=== PATIENT | male | born 1980 | race Caucasian/White ===

== ENCOUNTER 2017-01-31 12:08 | Emergency (ER) | payer OTHER ==
[2017-01-31 12:12] VITALS: BMI 38.0
--- NOTE | 2017-01-31 12:30 | PDOC ---
History of Present Illness - General Chief Complaint: Lightheaded Stated Complaint: Syncope/Near Syncope Time Seen by Provider: 01/31/17 12:14 History Source: Patient Exam Limitations: No Limitations - History of Present Illness Initial Comments: CHIEF COMPLAINT: 36 y/o afebrile male with PMH HTN c/o dizziness and abdominal pain at 11:30 this morning. HISTORY OF PRESENT ILLNESS: The patient states he stepped out of his house on his way to work when he experienced dizziness, that he describes as the room spinning around him, nausea and upper abdominal pain. He states he still has dizziness and now a headache. He does admit he was diagnosed with HTN by Dr. Schuler and finished his first 30 days of medication about 3 days ago. He states he hasn't followed up with Dr. Schuler yet to see if he needs a refill. he denies fever, chills, neck pain, changes in vision/hearing, v/d, CP, SOB, hematuria, dysuria, numbness/tingling in extremities. PCP is Dr. Dorina Schuelr. Vital signs on arrival are within normal limits. REVIEW OF SYSTEMS: GENERAL/CONSTITUTIONAL: No fever/chills. No weakness. No weight change. HEAD, EYES, EARS, NOSE AND THROAT: No change in vision. No ear pain or discharge. No sore throat. CARDIOVASCULAR: No chest pain or shortness of breath. RESPIRATORY: No cough, wheezing, or hemoptysis. GASTROINTESTINAL: +sharp upper abdominal pain and nausea. No vomiting, diarrhea , constipation. GENITOURINARY: No dysuria, frequency, or change in urination. MUSCULOSKELETAL: No joint or muscle swelling or pain. No neck or back pain. SKIN: No rash or easy bruising. NEUROLOGIC: +headache and dizziness. No loss of consciousness or loss of sensation. PHYSICAL EXAM: GENERAL: The patient is awake, alert, and fully oriented, in no acute distress. He is a morbidly obese male, in NAD or obvious discomfort. HEAD: Normal with no signs of trauma. NECK: No meningismus. ENT: Pupils equal, round and reactive to light, extraocular movements intact, sclera anicteric, conjunctiva clear. LUNGS: Clear to auscultation bilaterally. Normal excursion. No respiratory distress or use of accessory muscles. CV: RRR, S1/S2, no MRG. Cap refill < 2 sec. ABDOMEN: Soft, obese, epigastric TTP and +Valenzuela's sign. No rebound, guarding or rigidity. EXTREMITIES: Normal range of motion, no edema. NEUROLOGICAL: Normal speech, normal gait. CN II-XII grossly intact. PSYCH: Normal mood, normal affect. SKIN: Warm, dry, normal turgor, no rashes or lesions noted. Past History - Past Medical History Allergies/Adverse Reactions: Allergies Allergy/AdvReac Type Severity Reaction Status Date / Time No Known Allergies Allergy Verified 01/31/17 13:48 Home Medications: Ambulatory Orders No Home Medications 0 dose .ROUTE UTDICT 12/12/12 Meclizine HCl [Antivert -] 25 mg PO TID #15 tablet 01/31/17 Anemia: No Asthma: No Cancer: No Cardiac Disorders: No CVA: No COPD: No CHF: No Dementia: No Diabetes: No GI Disorders: Yes (REFLUX) Disorders: No HTN: No Hypercholesterolemia: Yes Liver Disease: No Seizures: No Thyroid Disease: Yes - Surgical History Abdominal Surgery: No Appendectomy: No Cardiac Surgery: No Cholecystectomy: No Lung Surgery: No Neurologic Surgery: No Orthopedic Surgery: No - Immunization History Immunization Up to Date: Yes - Psycho/Social/Smoking Cessation Hx Anxiety: No Suicidal Ideation: No Smoking Status: No Smoking History: Never smoked Have you smoked in the past 12 months: No Number of Cigarettes Smoked Daily: 0 Hx Alcohol Use: No Drug/Substance Use Hx: No Substance Use Type: None Hx Substance Use Treatment: No *Physical Exam - Vital Signs Last Vital Signs Temp Pulse Resp BP Pulse Ox 98.6 F 61 18 145/87 98 01/31/17 12:10 01/31/17 12:10 01/31/17 12:10 01/31/17 12:10 01/31/17 12:10 Heart Score/ECG Review - ECG Intrepretation Comment:: Twelve-lead EKG was performed and reviewed by Dr. Grissom. There is normal sinus rhythm with a normal rate. The axis is normal. The intervals are normal. There are no ST or T wave abnormalities. Impression: Normal twelve-lead EKG ED Treatment Course - LABORATORY CBC & Chemistry Diagram: 01/31/17 13:01 01/31/17 13:05 Medical Decision Making - Medical Decision Making A/P: 36 y/o male with dizziness, FRASER, nausea and upper abdominal pain that started at 11:30am. Plan is as follows: 1. Labs 2. EKG 3. gallbladder ultrasound 4. IV fluids 5. IV tylenol 6. IV pepcid Labs unremarkable. EKG normal Gallbladder Ultrasound IMPRESSION: Hepatomagaly with fatty infiltration versus hepatocellular disease. Please correlate with liver enzymes. Gallbladder polyp measuring 5mm without evidence of gallstones, wall thickening or pericholecystic free fluid. Limited visualization of the pancreas, as described above. The patient states he is still dizzy and with a headache. Will give IV toradol and PO meclizine The patient now states he feels much better with complete resolution of dizziness and headache almost completely resolved. Will discharge to home with dx of vertigo. Suggested the patient f/u with Dr. Schuler as soon as possible to have his blood pressure re-evaluated. Will send rx for meclizine and suggested he take if needed as prescribed. Instructed him to return to the ER with any worsening or concerning symptoms. The patient verbalizes understanding of all instructions, has no further questions and is awaiting discharge. *DC/Admit/Observation/Transfer Diagnosis at time of Disposition: Vertigo - Discharge Dispostion Disposition: HOME Condition at time of disposition: Improved - Referrals Referrals: Dorina Schuler MD [Primary Care Provider] - - Patient Instructions Printed Discharge Instructions: DI for Vertigo Additional Instructions: Discharge Instructions: -All of your labs and EKG were normal -A prescription for dizziness has been called out to your pharmacy; please take if needed as prescribed -Please call Dr. Schuler tomorrow to schedule follow up appointment -Return to the ER with any worsening or concerning symptoms
[2017-01-31] MEDS ORDERED: SODIUM CHLORIDE 1,000 ML IV STA (13:02)
[2017-01-31] MEDS ORDERED: ACETAMINOPHEN 1000 MG/100 ML VIAL (NON FORMULARY) IVPB ONE (13:02)
[2017-01-31] MEDS ORDERED: FAMOTIDINE 20 MG/50 ML IVPB 50 ML IVPB ONE ×2 (13:08→13:27)
[2017-01-31 13:09] LABS: BASOPHIL 0.7 % (0-2.0); EOSINOPHIL 0.4 % (0-4.5); MCH 28.6 pg (25.7-33.7); MCHC 33.7 g/dl (32.0-35.9); MEAN CELL VOLUME 84.8 fl (80-96); NEUTROPHILS 61.2 % (42.8-82.8); PLATELET COUNT 258 K/MM3 (134-434); RDW 13.6 % (11.9-15.9)
[2017-01-31] MEDS ORDERED: ACETAMINOPHEN INJECTION 100 ML IVPB ONE (13:27)
[2017-01-31 13:43] LABS: ALBUMIN 3.4 g/dl (3.4-5.0); ANION GAP 6 (8-16); BILIRUBIN,TOTAL 0.4 mg/dL (0.2-1.0); CO2 31 mmol/L (21-32); CREATININE 0.9 mg/dL (0.7-1.3); GLUCOSE,RANDOM 93 mg/dL (74-106); SGOT/AST 27 U/L (15-37); SGPT/ALT 48 U/L (12-78); TOT PROT 7.5 g/dl (6.4-8.2)
[2017-01-31 13:45] LABS: ALK PHOS 49 U/L (45-117); TROPONIN I < 0.02 ng/ml (0.00-0.05)
[2017-01-31 14:25] LABS: URINE APPEARANCE CLEAR; URINE BILIRUBIN NEGATIVE (NEGATIVE); URINE BLOOD NEGATIVE (NEGATIVE); URINE COLOR STRAW; URINE GLUCOSE (UA) NEGATIVE (NEGATIVE); URINE KETONE NEGATIVE (NEGATIVE); URINE LEUK ESTERASE NEGATIVE (NEGATIVE); URINE NITRITE NEGATIVE (NEGATIVE); URINE PROTEIN NEGATIVE (NEGATIVE); URINE UROBILINOGEN NEGATIVE mg/dL (0.2-1.0)
--- NOTE | 2017-01-31 14:47 | EKG ---
Test Reason : Blood Pressure : / mmHG Vent. Rate : 062 BPM Atrial Rate : 062 BPM P-R Int : 146 ms QRS Dur : 080 ms QT Int : 386 ms P-R-T Axes : 022 003 018 degrees QTc Int : 391 ms NORMAL SINUS RHYTHM NORMAL ECG WHEN COMPARED WITH ECG OF 12-DEC-2012 14:42, NO SIGNIFICANT CHANGE WAS FOUND Confirmed by EFRAIN PINTO MD ([id number]) on 01/31/2017 2:47:03 PM Referred By: Confirmed By:EFRAIN PINTO MD
[2017-01-31] MEDS ORDERED: KETOROLAC TROMETHAMINE 30 MG/1 ML VIAL IVPUSH ONE (15:23)
[2017-01-31] MEDS ORDERED: MECLIZINE HCL 25 MG TABLET (FP) PO ONE (15:23)
[2017-01-31] MEDS ORDERED: MECLIZINE HCL 25 MG TABLET (FP) ONE (15:31)
[2017-01-31] MEDS ORDERED: KETOROLAC TROMETHAMINE 30 MG/1 ML VIAL ONE (15:32)
[2017-01-31 16:17] VITALS: BP 114/70; PULSE 58; TEMP 98.2
== END 2017-01-31 17:43 | disposition home or self-care (01) ==
LOC: JER 12:08
PROC: 3E033NZ Introduction of Analgesics, Hypnotics, Sedatives into Peripheral Vein, Percutaneous Approach (ICD-10-PCS; principal; 2017-01-31)
PROC: 3E033GC Introduction of Other Therapeutic Substance into Peripheral Vein, Percutaneous Approach (ICD-10-PCS; 2017-01-31)
PROC: 3E0333Z Introduction of Anti-inflammatory into Peripheral Vein, Percutaneous Approach (ICD-10-PCS; 2017-01-31)
PROC: 3E0337Z Introduction of Electrolytic and Water Balance Substance into Peripheral Vein, Percutaneous Approach (ICD-10-PCS; 2017-01-31)
DX: R42 Dizziness and giddiness (principal)
CPT/HCPCS: 36415; 76705-TC; 80053; 81003; 82550; 82553; 83690; 84484; 85025; 93005; 93010; 99285-25

== ENCOUNTER 2017-04-20 14:17 | Emergency (ER) | payer OTHER ==
[2017-04-20 14:23] VITALS: BP 144/90; PULSE 93; TEMP 99; BMI 38.0
[2017-04-20] MEDS ORDERED: SODIUM CHLORIDE 0.9% 1000 ML INFUS.BAG IV ONE (15:29)
[2017-04-20] MEDS ORDERED: ALBUTEROL SO4 2.5/IPRATROPIUM 0.5 INH SOL 3 ML VIAL.NEB. NEB ONE ×4 (15:29→16:14)
[2017-04-20] MEDS ORDERED: methylPREDNISolone NA SUCC 125 MG/2 ML VIAL IVPB ONE (15:29)
--- NOTE | 2017-04-20 15:29 | PDOC ---
History of Present Illness - General History Source: Patient Exam Limitations: No Limitations - History of Present Illness Initial Comments: 04/20/17 15:37 36 yr old male, with no significant pmhx, who presents today complaining of 1 week of cough and 2 days of chest discomfort. He explains that he went to an urgent care 2 days ago where he was prescribed prednisone, doxycycline, and a proair inhaler. He has been compliant with all of the medications, but the cough persists. He notes that his chest feels tight after coughing. He states that his head feels like it is going to explode from all of the coughing. Denies fever, chills, nausea, vomiting. Denies hemoptysis. Denies palpitations. Denies leg swelling, calf pain. Allergies: NKDA <Mariola Whitney - Last Filed: 04/20/17 15:37> <Marcia Zapata - Last Filed: 04/20/17 17:35> - General Chief Complaint: Respiratory Stated Complaint: CHEST PAIN Time Seen by Provider: 04/20/17 15:17 Past History <Mariola Whitney - Last Filed: 04/20/17 15:37> - Past Medical History Anemia: No Asthma: No Cancer: No Cardiac Disorders: No CVA: No COPD: No CHF: No Dementia: No Diabetes: No GI Disorders: Yes (REFLUX) Disorders: No HTN: No Hypercholesterolemia: Yes Liver Disease: No Seizures: No Thyroid Disease: Yes Other medical history: DENIES. - Surgical History Abdominal Surgery: No Appendectomy: No Cardiac Surgery: No Cholecystectomy: No Lung Surgery: No Neurologic Surgery: No Orthopedic Surgery: No - Immunization History Immunization Up to Date: Yes - Suicide/Smoking/Psychosocial Hx Smoking Status: No Smoking History: Never smoked Have you smoked in the past 12 months: No Number of Cigarettes Smoked Daily: 0 Hx Alcohol Use: No Drug/Substance Use Hx: No Substance Use Type: None Hx Substance Use Treatment: No <Marcia Zapata - Last Filed: 04/20/17 17:35> - Past Medical History Allergies/Adverse Reactions: Allergies Allergy/AdvReac Type Severity Reaction Status Date / Time No Known Allergies Allergy Verified 04/20/17 14:21 Home Medications: Ambulatory Orders Albuterol Sulfate [Proair Respiclick] 90 mcg NEB PRN 04/20/17 Benzonatate 100 mg PO 04/20/17 Doxycycline 100 mg PO BID 04/20/17 Inhaler, Assist Devices [Space Chamber Plus] 1 each MC 5XD #1 spacer 04/20/17 Prednisone [Deltasone] 40 mg PO 04/20/17 Review of Systems - Review of Systems Able to Perform ROS?: Yes Comments:: 04/20/17 15:38 GENERAL/CONSTITUTIONAL: No fever or chills. No weakness. HEAD, EYES, EARS, NOSE AND THROAT: No change in vision. No ear pain or discharge. No sore throat. GASTROINTESTINAL: No nausea, vomiting, diarrhea or constipation. GENITOURINARY: No dysuria, frequency, or change in urination. CARDIOVASCULAR: No chest pain or shortness of breath. RESPIRATORY: +cough, chest tightness. No wheezing, or hemoptysis. MUSCULOSKELETAL: No joint or muscle swelling or pain. No neck or back pain. SKIN: No rash NEUROLOGIC: No headache, vertigo, loss of consciousness, or change in strength/ sensation. ENDOCRINE: No increased thirst. No abnormal weight change. HEMATOLOGIC/LYMPHATIC: No anemia, easy bleeding, or history of blood clots. ALLERGIC/IMMUNOLOGIC: No hives or skin allergy. <Mariola Whitney - Last Filed: 04/20/17 15:37> *Physical Exam - Vital Signs Last Vital Signs Temp Pulse Resp BP Pulse Ox 99 F 93 H 18 144/90 96 04/20/17 14:19 04/20/17 14:19 04/20/17 14:19 04/20/17 14:19 04/20/17 14:19 - Physical Exam Comments: 04/20/17 15:38 Constitutional: Awake, alert, oriented. No acute distress. Head: Normocephalic. Atraumatic Eyes: PERRL. EOMI. Conjunctivae are not pale. ENT: Mucous membranes are moist and intact. Posterior pharynx without exudates or erythema. Uvula midline. Neck: Supple. Full ROM. No lymphadenopathy. Cardiovascular: Regular rate. Regular rhythm. S1, S2 regular. Distal pulses are 2+ and symmetric. Pulmonary/Chest: +wheezing diffusely in all lung baker. No evidence of respiratory distress. Clear to auscultation bilaterally No rales or rhonchi. Abdominal: Soft and non-distended. There is no tenderness. No rebound, guarding or rigidity. No organomegaly. No palpable masses. Good bowel sounds. Back: No CVA tenderness. Musculoskeletal: No edema. No cyanosis. No clubbing. Full range of motion in all extremities. Nocalf tenderness. Radial/pedal pulses are intact and 2+ bilaterally Skin: Skin is warm and dry. No petechiae. No purpura. Neurological: Alert and oriented to person, place, and time. Cranial nerves II -XII are grossly intact. Normal speech. Strength is grossly symmetric. No sensory deficits. Psychiatric: Good eye contact. Normal interaction, affect and behavior. <Mariola Whitney - Last Filed: 04/20/17 15:37> - Vital Signs Last Vital Signs Temp Pulse Resp BP Pulse Ox 99 F 93 H 18 144/90 96 04/20/17 14:19 04/20/17 14:19 04/20/17 14:19 04/20/17 14:19 04/20/17 14:19 <Marcia Zapata - Last Filed: 04/20/17 17:35> ED Treatment Course - LABORATORY CBC & Chemistry Diagram: 04/20/17 16:30 04/20/17 16:26 <Marcia Zapata - Last Filed: 04/20/17 17:35> Medical Decision Making - Medical Decision Making 04/20/17 15:30 36yo male with 3 days of wheezing, sob, and cough -seen at urgent care and now with increasing sob -labs -xray -nebs steroids ivf hydration flu swab reassess 04/20/17 17:32 pt feeling much better. lungs cta. speaking in full sentences. Has prednisone, doxy and proair at home. Will give work note. xray without pna. Stable for d/c to home. <Marcia Zapata - Last Filed: 04/20/17 17:35> *DC/Admit/Observation/Transfer - Attestations Scribe Attestion: 04/20/17 15:38 Documentation prepared by RUPINDER Werner, acting as director medical for Marcia Zapata DO. <Mariola Whitney - Last Filed: 04/20/17 15:37> - Discharge Dispostion Admit: No - Attestations Physician Attestion: 04/20/17 17:35 I, Dr. Marcia Zapata, DO, attest that this document has been prepared under my direction and personally reviewed by me in its entirety. I further attest, that it accurately reflects all work, treatment, procedures and medical decision -making performed by me. <Marcia Zapata - Last Filed: 04/20/17 17:35> Diagnosis at time of Disposition: Acute bronchitis with bronchospasm - Discharge Dispostion Disposition: HOME Condition at time of disposition: Stable - Prescriptions Prescriptions: Inhaler, Assist Devices [Space Chamber Plus] 1 each MC 5XD #1 spacer - Referrals Referrals: Dorina Schuler MD [Primary Care Provider] - - Patient Instructions Printed Discharge Instructions: DI for Reactive Airway Disease-Adult Additional Instructions: Please take all meds as prescribed. Please follow up with your PMD. Please return to the ED with any further concerns. - Post Discharge Activity Forms/Work/School Notes: Back to Work
[2017-04-20] MEDS ORDERED: methylPREDNISolone NA SUCC 125 MG/2 ML VIAL ONE (15:37)
[2017-04-20 16:42] LABS: BASOPHIL 0.3 % (0-2.0); MCHC 33.3 g/dl (32.0-35.9); WHITE BLOOD COUNT 12.5 K/mm3 (4.0-10.0)
[2017-04-20 16:45] LABS: MCH 28.6 pg (25.7-33.7); MEAN CELL VOLUME 85.9 fl (80-96); MEAN PLT VOLUME 7.5 fl (7.5-11.1); NEUTROPHILS 78.6 % (42.8-82.8); PLATELET COUNT 317 K/MM3 (134-434); RDW 14.1 % (11.9-15.9)
[2017-04-20 17:19] LABS: ALBUMIN 3.7 g/dl (3.4-5.0); ANION GAP 9 (8-16); BILIRUBIN,TOTAL 0.4 mg/dL (0.2-1.0); CALCIUM 9.5 mg/dL (8.5-10.1); CO2 26 mmol/L (21-32); CREATININE 1.1 mg/dL (0.7-1.3); GLUCOSE,RANDOM 116 mg/dL (74-106); SGOT/AST 20 U/L (15-37); SGPT/ALT 51 U/L (12-78); TOT PROT 8.4 g/dl (6.4-8.2)
[2017-04-20 17:20] LABS: ALK PHOS 53 U/L (45-117)
--- NOTE | 2017-04-27 09:22 | EKG ---
Test Reason : Blood Pressure : / mmHG Vent. Rate : 082 BPM Atrial Rate : 082 BPM P-R Int : 148 ms QRS Dur : 086 ms QT Int : 362 ms P-R-T Axes : 035 008 028 degrees QTc Int : 422 ms NORMAL SINUS RHYTHM NORMAL ECG WHEN COMPARED WITH ECG OF 31-JAN-2017 13:04, NO SIGNIFICANT CHANGE WAS FOUND Confirmed by MADISON SUTTON MD ([id number]) on 04/27/2017 9:22:23 AM Referred By: Confirmed By:MADISON SUTTON MD
== END 2017-04-20 17:37 | disposition home or self-care (01) ==
LOC: JER 14:17
PROC: 3E0F7GC Introduction of Other Therapeutic Substance into Respiratory Tract, Via Natural or Artificial Opening (ICD-10-PCS; principal; 2017-04-20)
PROC: 3E033GC Introduction of Other Therapeutic Substance into Peripheral Vein, Percutaneous Approach (ICD-10-PCS; 2017-04-20)
PROC: 3E0337Z Introduction of Electrolytic and Water Balance Substance into Peripheral Vein, Percutaneous Approach (ICD-10-PCS; 2017-04-20)
DX: J47.0 Bronchiectasis with acute lower respiratory infection (principal); J20.9 Acute bronchitis, unspecified
CPT/HCPCS: 36415; 71020-TC; 80053; 85025; 87804; 93005; 93010; 99283-25

== ENCOUNTER 2017-06-22 14:47 | Emergency (ER) | payer OTHER ==
--- NOTE | 2017-06-22 14:53 | PDOC ---
Rapid Medical Evaluation Chief Complaint: Injury Time Seen by Provider: 06/22/17 14:52 Medical Evaluation: Allergies Allergy/AdvReac Type Severity Reaction Status Date / Time No Known Allergies Allergy Verified 04/20/17 14:21 06/22/17 14:52 I have performed a brief in-person evaluation of this patient. The patient presents with a chief complaint of: Fall in setting of dizziness today, no LOC, n/v. Seen for same 01/29 and dx w/ vertigo. Was also told BP was elevated at the time. States he was put on BP meds by Dr Schuler but taken off for unclear reasons. Pertinent physical exam findings: Stable w/ BP 156/91, +abrasion over R eyelid, non-focal w/ clear chest/lungs I have ordered the following:ekg/cbc/chem/ua The patient will proceed to the ED for further evaluation. 06/22/17 14:54
[2017-06-22 14:55] VITALS: BP 156/91; PULSE 83; TEMP 98.7; BMI 38.0
[2017-06-22 15:20] LABS: BASOPHIL 0.8 % (0-2.0); EOSINOPHIL 0.4 % (0-4.5); MCH 28.7 pg (25.7-33.7); MCHC 33.9 g/dl (32.0-35.9); MEAN CELL VOLUME 84.7 fl (80-96); MEAN PLT VOLUME 7.6 fl (7.5-11.1); NEUTROPHILS 64.6 % (42.8-82.8); PLATELET COUNT 274 K/MM3 (134-434); RDW 13.8 % (11.9-15.9); WHITE BLOOD COUNT 8.6 K/mm3 (4.0-10.0)
[2017-06-22 15:21] LABS: URINE APPEARANCE CLEAR; URINE BILIRUBIN NEGATIVE (NEGATIVE); URINE BLOOD NEGATIVE (NEGATIVE); URINE COLOR LTYELLOW; URINE GLUCOSE (UA) NEGATIVE (NEGATIVE); URINE KETONE NEGATIVE (NEGATIVE); URINE LEUK ESTERASE NEGATIVE (NEGATIVE); URINE NITRITE NEGATIVE (NEGATIVE); URINE PROTEIN NEGATIVE (NEGATIVE); URINE UROBILINOGEN NEGATIVE mg/dL (0.2-1.0)
[2017-06-22 15:40] LABS: ALBUMIN 3.5 g/dl (3.4-5.0); ANION GAP 9 (8-16); BILIRUBIN,TOTAL 0.4 mg/dL (0.2-1.0); CO2 27 mmol/L (21-32); GLUCOSE,RANDOM 109 mg/dL (74-106); SGOT/AST 24 U/L (15-37); SGPT/ALT 45 U/L (12-78); TOT PROT 7.5 g/dl (6.4-8.2)
[2017-06-22 15:42] LABS: ALK PHOS 57 U/L (45-117); CPK 274 IU/L (39-308); TROPONIN I < 0.02 ng/ml (0.00-0.05)
--- NOTE | 2017-06-22 17:58 | PDOC ---
History of Present Illness - History of Present Illness Initial Comments: 06/22/17 17:56 Mr. Darren Hernandez is a 36 yo male w/ pmh of HTN (not currently on medications) who presents for evaluation after falling into the wall today and hitting his head. He reports that he didn't sleep well last night as he is recently returned from [facility] (yesterday) for the passing of his father. He took a nap on the couch and when he woke up he was very dizzy. He attempted to walk to the bathroom and on the way stumbled into the wall, hitting his head. He is currently reporting right sided headache and "fuzzyness" out of his right eye. The patient denies chest pain and shortness of breath. Denies fever, chills, nausea, vomit, diarrhea and constipation. Denies dysuria, frequency, urgency and hematuria. Allergies: NKDA <David Schrader - Last Filed: 06/22/17 18:58> <Nanci Alcocer - Last Filed: 06/22/17 19:04> - General Chief Complaint: Injury Stated Complaint: FALL Time Seen by Provider: 06/22/17 14:52 Past History - Past Medical History Anemia: No Asthma: No Cancer: No Cardiac Disorders: No CVA: No COPD: No CHF: No Dementia: No Diabetes: No GI Disorders: Yes (REFLUX) Disorders: No HTN: No Hypercholesterolemia: Yes Liver Disease: No Seizures: No Thyroid Disease: Yes (UNSURE) - Surgical History Abdominal Surgery: No Appendectomy: No Cardiac Surgery: No Cholecystectomy: No Lung Surgery: No Neurologic Surgery: No Orthopedic Surgery: No - Immunization History Immunization Up to Date: Yes - Suicide/Smoking/Psychosocial Hx Smoking Status: No Smoking History: Never smoked Have you smoked in the past 12 months: No Number of Cigarettes Smoked Daily: 0 Hx Alcohol Use: Yes (OCCASIONNALLY) Drug/Substance Use Hx: No Substance Use Type: None Hx Substance Use Treatment: No <David Schrader - Last Filed: 06/22/17 18:58> <Nanci Alcocer - Last Filed: 06/22/17 19:04> - Past Medical History Allergies/Adverse Reactions: Allergies Allergy/AdvReac Type Severity Reaction Status Date / Time No Known Allergies Allergy Verified 06/22/17 14:55 Home Medications: Ambulatory Orders Meclizine HCl [Antivert -] 25 mg PO PRN #7 tablet 06/22/17 Review of Systems - Review of Systems Comments:: 06/22/17 18:01 GENERAL/CONSTITUTIONAL: No fever or chills. No weakness. HEAD, EYES, EARS, NOSE AND THROAT: +Patient reports Right eye is "fuzzy." No ear pain or discharge. No sore throat. CARDIOVASCULAR: No chest pain or shortness of breath RESPIRATORY: No cough, wheezing, or hemoptysis. GASTROINTESTINAL: No nausea, vomiting, diarrhea or constipation. GENITOURINARY: No dysuria, frequency, or change in urination. MUSCULOSKELETAL: No joint or muscle swelling or pain. No neck or back pain. SKIN: No rash NEUROLOGIC: +Headache post fall with intermittent dizziness for the past several months. No loss of consciousnessor change in strength/sensation. ENDOCRINE: No increased thirst. No abnormal weight change HEMATOLOGIC/LYMPHATIC: No anemia, easy bleeding, or history of blood clots. ALLERGIC/IMMUNOLOGIC: No hives or skin allergy. 06/22/17 18:04 <David Schrader - Last Filed: 06/22/17 18:58> *Physical Exam - Vital Signs Last Vital Signs Temp Pulse Resp BP Pulse Ox 98.7 F 83 18 156/91 99 06/22/17 14:51 06/22/17 14:51 06/22/17 14:51 06/22/17 14:51 06/22/17 14:51 - Physical Exam Comments: 06/22/17 18:03 GENERAL: Awake, alert, and fully oriented, in no acute distress HEAD: No signs of trauma, normocephalic, atraumatic EYES: +Left eye vision 20/20, Right eye currently 20/40. (patient normally 20/ 20 in both eyes). PERRLA, EOMI, sclera anicteric, conjunctiva clear ENT: Auricles normal inspection, hearing grossly normal, nares patent, oropharynx clear without exudates. Moist mucosa NECK: Normal ROM, supple, no lymphadenopathy, JVD, or masses LUNGS: No distress, speaks full sentences, clear to auscultation bilaterally HEART: Regular rate and rhythm, normal S1 and S2, no murmurs, rubs or gallops, peripheral pulses normal and equal bilaterally. ABDOMEN: Soft, nontender, normoactive bowel sounds. No guarding, no rebound. No masses EXTREMITIES: Normal inspection, Normal range of motion, no edema. No clubbing or cyanosis. NEUROLOGICAL: +Positive Bo-Hallpike on exam. Cranial nerves II through XII grossly intact. Normal speech, normal gait, no focal sensorimotor deficits SKIN: Warm, Dry, normal turgor, no rashes or lesions noted. <David Schrader - Last Filed: 06/22/17 18:58> - Vital Signs Last Vital Signs Temp Pulse Resp BP Pulse Ox 98.7 F 83 18 156/91 99 06/22/17 14:51 06/22/17 14:51 06/22/17 14:51 06/22/17 14:51 06/22/17 14:51 <Nanci Alcocer - Last Filed: 06/22/17 19:04> ED Treatment Course - LABORATORY CBC & Chemistry Diagram: 06/22/17 15:10 06/22/17 15:10 - ADDITIONAL ORDERS Additional order review: Laboratory Results 06/22/17 06/22/17 15:10 15:10 Sodium 139 Potassium 3.8 Chloride 103 Carbon Dioxide 27 Anion Gap 9 BUN 11 D Creatinine 1.0 Creat Clearance w eGFR > 60 Random Glucose 109 H Calcium 9.0 Total Bilirubin 0.4 AST 24 ALT 45 Alkaline Phosphatase 57 Creatine Kinase 274 Troponin I < 0.02 Total Protein 7.5 Albumin 3.5 Urine Color Ltyellow Urine Appearance Clear Urine pH 7.0 Ur Specific [place] 1.012 Urine Protein Negative Urine Glucose (UA) Negative Urine Ketones Negative Urine Blood Negative Urine Nitrite Negative Urine Bilirubin Negative Urine Urobilinogen Negative 06/22/17 15:10 RBC 5.04 MCV 84.7 MCHC 33.9 RDW 13.8 MPV 7.6 Neutrophils % 64.6 Lymphocytes % 30.0 D Monocytes % 4.2 D Eosinophils % 0.4 D Basophils % 0.8 - RADIOLOGY Radiology Studies Ordered: Category Date Time Status HEAD CT WITHOUT CONTRAST [CT] Stat CT Scan 06/22/17 17:25 Taken <David Schrader - Last Filed: 06/22/17 18:58> - LABORATORY CBC & Chemistry Diagram: 06/22/17 15:10 06/22/17 15:10 - ADDITIONAL ORDERS Additional order review: Laboratory Results 06/22/17 06/22/17 15:10 15:10 Sodium 139 Potassium 3.8 Chloride 103 Carbon Dioxide 27 Anion Gap 9 BUN 11 D Creatinine 1.0 Creat Clearance w eGFR > 60 Random Glucose 109 H Calcium 9.0 Total Bilirubin 0.4 AST 24 ALT 45 Alkaline Phosphatase 57 Creatine Kinase 274 Troponin I < 0.02 Total Protein 7.5 Albumin 3.5 Urine Color Ltyellow Urine Appearance Clear Urine pH 7.0 Ur Specific [place] 1.012 Urine Protein Negative Urine Glucose (UA) Negative Urine Ketones Negative Urine Blood Negative Urine Nitrite Negative Urine Bilirubin Negative Urine Urobilinogen Negative Ur Leukocyte Esterase Negative 06/22/17 15:10 RBC 5.04 MCV 84.7 MCHC 33.9 RDW 13.8 MPV 7.6 Neutrophils % 64.6 Lymphocytes % 30.0 D Monocytes % 4.2 D Eosinophils % 0.4 D Basophils % 0.8 - Medications Given in the ED: ED Medications Discontinued Medications Generic Name Dose Route Start Last Admin Trade Name Vladimirq PRN Reason Stop Dose Admin Meclizine HCl 25 mg 06/22/17 18:25 06/22/17 18:29 Antivert - PO 06/22/17 18:26 25 mg ONCE ONE Administration <Nanci Alcocer - Last Filed: 06/22/17 19:04> Medical Decision Making - Medical Decision Making 06/22/17 18:30 Patient evaluated by Head CT and EKG. CT negative for acute pathology, EKG normal rate, rhythm, access, interval, no ST elevations or depressions. Normal EKG. Given negative findings and positive Bo-Hallpike, confident etiology of symptoms is vertiginous in nature. Will discharge to home w/ instructions to f/ u with primary care doctor as well as temporary Rx for meclizine. 06/22/17 18:58 Patient also reports generalized "spots" in vision. No true field defect, do not suspect retinal hemorrage or occlusion. Optho information provided for further follow-up. <David Schrader - Last Filed: 06/22/17 18:58> *DC/Admit/Observation/Transfer <David Schrader - Last Filed: 06/22/17 18:58> <Nanci Alcocer - Last Filed: 06/22/17 19:04> Diagnosis at time of Disposition: Vertigo - Discharge Dispostion Disposition: HOME - Prescriptions Prescriptions: Meclizine HCl [Antivert -] 25 mg PO PRN #7 tablet - Referrals Referrals: Dorina Schuler MD [Primary Care Provider] - Rodney Fitzgerald MD [Staff Physician] - - Patient Instructions Printed Discharge Instructions: DI for Vertigo Additional Instructions: Please return if any increase in pain, fever, altered mental status, or other concerning symptoms. - Post Discharge Activity
[2017-06-22 18:20] LABS: URINE LEUK ESTERASE Negative (NEGATIVE)
[2017-06-22] MEDS ORDERED: MECLIZINE HCL 25 MG TABLET (FP) PO ONE (18:25)
[2017-06-22] MEDS ORDERED: MECLIZINE HCL 25 MG TABLET (FP) ONE (18:26)
--- NOTE | 2017-06-22 19:03 | PDOC ---
Attending Attestation - HPI HPI: 06/22/17 19:04 The patient is a 36 year old male, with a significant past medical history of HTN (not medicated), who presents to the emergency department s/p mechanical fall. The patient reports falling and hitting his head after not sleeping well the previous night. He reports returning from [place], yesterday. He reports waking up from his nap feeling dizzy then stumbling as he walked to the bathroom. He reports headache and blurred vision in his right eye. <Nanci Alcocer - Last Filed: 06/22/17 19:04> - Resident Resident Name: David Schrader - ED Attending Attestation I have performed the following: I have examined & evaluated the patient, The case was reviewed & discussed with the resident, I agree w/resident's findings & plan, Exceptions are as noted - Physicial Exam PE: 06/22/17 19:49 Patient is awake and alert, morbidly obese, in no distress nc, atr perrla, eomi va: 20/20 b/l; no visual field defects are noted. cn ii-xii grossly intact, motor-5/5x4, gait-stable - Medical Decision Making 06/22/17 19:57 Patient is a 36-year-old male with history of vertigo who presents with minor head injury after a vertiginous episode that resolved spontaneously. Patient is reporting visual symptoms are localized to the right eye only. Visual acuity is intact bilaterally. I do not suspect retinal detachment or vitreous hemorrhage. Will discharge with PMD and up to follow-up. <Carlos Berger - Last Filed: 06/22/17 19:57>
--- NOTE | 2017-06-23 20:42 | EKG ---
Test Reason : Blood Pressure : / mmHG Vent. Rate : 068 BPM Atrial Rate : 068 BPM P-R Int : 152 ms QRS Dur : 082 ms QT Int : 386 ms P-R-T Axes : 025 -02 009 degrees QTc Int : 410 ms NORMAL SINUS RHYTHM NORMAL ECG WHEN COMPARED WITH ECG OF 20-APR-2017 14:30, NO SIGNIFICANT CHANGE WAS FOUND Confirmed by THANH LYMAN MD ([id number]) on 06/23/2017 8:42:28 PM Referred By: Confirmed By:THANH LYMAN MD
== END 2017-06-22 18:52 | disposition home or self-care (01) ==
LOC: JER 14:47
DX: R42 Dizziness and giddiness (principal); I10 Essential (primary) hypertension; K21.9 Gastro-esophageal reflux disease without esophagitis; E78.00 Pure hypercholesterolemia, unspecified
CPT/HCPCS: 36415; 70450-TC; 80053; 81003; 82550; 82553; 84484; 85025; 93005; 93010; 99282-25

== ENCOUNTER 2017-09-26 10:33 | Emergency (ER) | payer OTHER ==
[2017-09-26 10:46] VITALS: BMI 39.3
[2017-09-26] MEDS ORDERED: SODIUM CHLORIDE 1,000 ML IV STA (10:57)
--- NOTE | 2017-09-26 10:57 | PDOC ---
History of Present Illness - History of Present Illness Initial Comments: 09/26/17 11:42 The patient is a 37 year old male with no significant past medical history who presents to the ED complaining of approximately 2 days of left flank pain. He states his pain is sharp, constant, worse with positional changes. It is now migrating to the suprapubic region and left testicle. He denies any fever or chills. He denies nausea, vomiting, or diarrhea. He denies hematuria or dysuria. He is sexually active with one partner. He denies genital lesions or discharge. <Zehra Beasley - Last Filed: 09/26/17 11:49> - General History Source: Patient Exam Limitations: No Limitations <Dior Ahumada - Last Filed: 09/27/17 11:18> - General Chief Complaint: Back Pain Stated Complaint: BACK PAIN Time Seen by Provider: 09/26/17 10:54 Past History <Zehra Beasley - Last Filed: 09/26/17 11:49> - Past Medical History Anemia: No Asthma: No Cancer: No Cardiac Disorders: No CVA: No COPD: No CHF: No Dementia: No Diabetes: No GI Disorders: Yes (REFLUX) Disorders: No HTN: No Hypercholesterolemia: Yes Liver Disease: No Seizures: No Thyroid Disease: Yes (UNSURE) - Surgical History Abdominal Surgery: No Appendectomy: No Cardiac Surgery: No Cholecystectomy: No Lung Surgery: No Neurologic Surgery: No Orthopedic Surgery: No - Immunization History Immunization Up to Date: Yes - Suicide/Smoking/Psychosocial Hx Smoking Status: No Smoking History: Never smoked Have you smoked in the past 12 months: No Number of Cigarettes Smoked Daily: 0 Information on smoking cessation initiated: No Hx Alcohol Use: No Drug/Substance Use Hx: No Substance Use Type: None Hx Substance Use Treatment: No <Dior Ahumada - Last Filed: 09/27/17 11:18> - Past Medical History Allergies/Adverse Reactions: Allergies Allergy/AdvReac Type Severity Reaction Status Date / Time No Known Allergies Allergy Verified 09/26/17 10:43 Home Medications: Ambulatory Orders Lidocaine 5% Patch [Lidoderm Patch -] 1 patch TP DAILY PRN #30 patch 09/26/17 Methocarbamol [Robaxin -] 500 mg PO TID PRN #30 tablet 09/26/17 Naproxen [Naprosyn] 500 mg PO BID PRN #20 tablet 09/26/17 traMADol HCL [Ultram] 50 mg PO BID #15 tablet MDD 2 09/26/17 Review of Systems - Review of Systems Able to Perform ROS?: Yes Comments:: 09/26/17 11:44 GENERAL/CONSTITUTIONAL: No: fever, chills, weakness, loss of appetite. HEAD, EYES, EARS, NOSE AND THROAT: No: change in vision, ear pain, discharge, sore throat, throat swelling. CARDIOVASCULAR: No: chest pain, lightheadedness, palpitations, syncope RESPIRATORY: No: cough, shortness of breath, wheezing, hemoptysis, stridor. GASTROINTESTINAL: No: nausea, vomiting, abdominal cramping, diarrhea, rectal bleeding, constipation. GENITOURINARY: Present: left flank pain, suprapubic pain, left testicular pain No: dysuria, hematuria, frequency, urgency MUSCULOSKELETAL: No: neck pain, joint pain, muscle swelling or pain SKIN AND BREASTS: No: lesions, pallor, rash or easy bruising. NEUROLOGIC: No: headache, vertigo, paresthesias, weakness ENDOCRINE: No: unexplained weight gain or loss HEMATOLOGIC/LYMPHATIC: No: anemia, easy bleeding, swelling nodes <Zehra Beasley - Last Filed: 09/26/17 11:49> *Physical Exam - Vital Signs Last Vital Signs Temp Pulse Resp BP Pulse Ox 99.9 F H 83 15 126/76 96 09/26/17 10:43 09/26/17 10:43 09/26/17 10:43 09/26/17 10:43 09/26/17 10:43 - Physical Exam Comments: 09/26/17 11:49 GENERAL: Well developed, well nourished. Uncomfortable appearing. HEAD: Normal with no signs of trauma. EYES: PERRLA, EOMI, sclera anicteric, conjunctiva clear. ENT: Ears normal, nares patent, oropharynx clear without exudates. Moist mucous membranes. NECK: Normal range of motion, supple without lymphadenopathy, JVD, or masses. LUNGS: Breath sounds equal, clear to auscultation bilaterally. No wheezes, and no crackles. HEART:Regular rate and rhythm, normal S1 and S2 without murmur, rub or gallop. ABDOMEN: Soft, nontender, normoactive bowel sounds. No guarding, no rebound. BACK: No CVA tenderness. EXTREMITIES: Normal range of motion, no edema. No clubbing or cyanosis. No erythema, or tenderness. NEUROLOGICAL: Cranial nerves II through XII grossly intact. Normal speech. No focal neurological deficits. MUSCULOSKELETAL: Back non-tender to palpation, no CVA tenderness SKIN: Warm, Dry, normal turgor, no rashes or lesions noted. : Patient has left groin tenderness to palpation, no testicular pain or tenderness. Patient does have pain with palpation of the vas deferens. No testicular swelling/erythema. Uncircumcised. <Zehra Beasley - Last Filed: 09/26/17 11:49> - Vital Signs Last Vital Signs Temp Pulse Resp BP Pulse Ox 99.9 F H 83 15 126/76 96 09/26/17 10:43 09/26/17 10:43 09/26/17 10:43 09/26/17 10:43 09/26/17 10:43 <Dior Ahumada - Last Filed: 09/27/17 11:18> ED Treatment Course - LABORATORY CBC & Chemistry Diagram: 09/26/17 11:00 09/26/17 11:00 - ADDITIONAL ORDERS Additional order review: Laboratory Results 09/26/17 11:00 Urine Color Ltyellow Urine Appearance Clear Urine pH 5.0 D Ur Specific Chuckey 1.016 Urine Protein Negative Urine Glucose (UA) Negative Urine Ketones Negative Urine Blood Negative Urine Nitrite Negative Urine Bilirubin Negative Urine Urobilinogen Negative Ur Leukocyte Esterase Negative 09/26/17 11:00 RBC 4.82 MCV 85.0 MCHC 34.0 RDW 14.2 MPV 7.3 L Neutrophils % 65.5 Lymphocytes % 28.1 Monocytes % 5.6 Eosinophils % 0.3 Basophils % 0.5 - Medications Given in the ED: ED Medications Discontinued Medications Generic Name Dose Route Start Last Admin Trade Name Freq PRN Reason Stop Dose Admin Ketorolac Tromethamine 30 mg 09/26/17 11:07 09/26/17 11:29 Toradol Injection - IVPUSH 09/26/17 11:08 30 mg ONCE ONE Administration <Zehra Beasley - Last Filed: 09/26/17 11:49> - LABORATORY CBC & Chemistry Diagram: 09/26/17 11:00 09/26/17 11:00 <Dior Ahumada - Last Filed: 09/27/17 11:18> Medical Decision Making - Medical Decision Making 09/26/17 11:37 Mr. Banks is a 37-year-old male with no significant past medical history who presents emergency department with a complaint of left flank as well as left testicular pain. Patient states that he was in his usual state of health, noticed proximally 2 days ago that he had left flank pain. Patient states the pain is now in the left side/left lower quadrant, as well as left testicle. Patient denies fevers or chills. Patient denies hematuria. Patient initially thought his pain was related to how he slept. He denies trauma. He denies prior history of kidney stone. Patient denies history of sexual transmitted disease. He is sexually active with his fiance only. He has noted no discharge. On examination: Patient appears uncomfortable. No CVA tenderness. Patient has left groin tenderness to palpation. No testicular pain or tenderness. Patient does have pain with palpation of the vas deferens. No testicular swelling/erythema. Uncircumcised. Diagnosis includes: Kidney stone, pyelonephritis, Renal Infarct, epididymitis, hernia Will do: Labs, UA, Toradol for pain, scrotal ultrasound. Urinalysis. Will reassess 09/26/17 12:55 Laboratory Tests 09/26/17 09/26/17 09/26/17 11:00 11:00 11:00 WBC 8.9 Hgb 13.9 Hct 41.0 Plt Count 335 D Sodium 139 Potassium 4.0 Chloride 102 Carbon Dioxide 26 BUN 15 D Creatinine 1.1 Random Glucose 92 Urine Blood Negative Urine Nitrite Negative Ur Leukocyte Esterase Negative 09/26/17 15:49 CT negative for obstructing uropathy LDH negative, renal infarct unlikely US no epididymitis UA negative, no pyelonephritis, no leukocytosis Pt now tells me that he has a history of back pain It is possible his pain is related to his chronic back pain? Will discharge to home Pt given copies of all labs and studies Pt asked to follow up with Dr Dorina Schuler within 1 week Pain medications prescribed Pt is requesting to go back to work now Clinical impression: left abdominal pain, initial presentation Musculoskeletal pain, initial presentation <Dior Ahumada - Last Filed: 09/27/17 11:18> *DC/Admit/Observation/Transfer - Attestations Scribe Attestion: 09/26/17 11:51 Documentation prepared by Zehra Beasley, acting as medical cost consultant for Dior Ahumada MD. <Zehra Beasley - Last Filed: 09/26/17 11:49> - Discharge Dispostion Admit: No <Dior Ahumada - Last Filed: 09/27/17 11:18> Diagnosis at time of Disposition: Musculoskeletal pain - Discharge Dispostion Disposition: HOME Condition at time of disposition: Stable - Prescriptions Prescriptions: Lidocaine 5% Patch [Lidoderm Patch -] 1 patch TP DAILY PRN #30 patch PRN Reason: Pain Methocarbamol [Robaxin -] 500 mg PO TID PRN #30 tablet PRN Reason: Pain Naproxen [Naprosyn] 500 mg PO BID PRN #20 tablet PRN Reason: Pain traMADol HCL [Ultram] 50 mg PO BID #15 tablet MDD 2 - Referrals Referrals: Dorina Schuler MD [Primary Care Provider] - - Patient Instructions Printed Discharge Instructions: DI for Musculoskeletal Pain Additional Instructions: MR Banks Thank you for coming to emergency department today. Please be sure to follow up with her primary care physician. Please take medications as prescribed for pain. Return to the ER for any other concerns or complaints - Post Discharge Activity Forms/Work/School Notes: Back to Work
[2017-09-26] MEDS ORDERED: KETOROLAC TROMETHAMINE 30 MG/1 ML VIAL IVPUSH ONE (11:07)
[2017-09-26] MEDS ORDERED: KETOROLAC TROMETHAMINE 30 MG/1 ML VIAL ONE (11:15)
[2017-09-26 11:20] LABS: BASO % 0.5 % (0-2.0); EOS % 0.3 % (0-4.5); HEMOGLOBIN 13.9 GM/dL (11.7-16.9); LYMPH % 28.1 % (8-40); MCH 28.8 pg (25.7-33.7); MEAN PLT VOLUME 7.3 fl (7.5-11.1); MONO % 5.6 % (3.8-10.2); NEUT % 65.5 % (42.8-82.8); PLATELET COUNT 335 K/MM3 (134-434); RBC 4.82 M/mm3 (4.00-5.60); RDW 14.2 % (11.9-15.9); URINE APPEARANCE CLEAR; URINE BILIRUBIN NEGATIVE (NEGATIVE); URINE BLOOD NEGATIVE (NEGATIVE); URINE COLOR LTYELLOW; URINE GLUCOSE (UA) NEGATIVE (NEGATIVE); URINE KETONE NEGATIVE (NEGATIVE); URINE LEUK ESTERASE NEGATIVE (NEGATIVE); URINE NITRITE NEGATIVE (NEGATIVE); URINE PROTEIN NEGATIVE (NEGATIVE); URINE UROBILINOGEN NEGATIVE mg/dL (0.2-1.0); WHITE BLOOD COUNT 8.9 K/mm3 (4.0-10.0)
[2017-09-26 11:55] LABS: ALBUMIN 3.6 g/dl (3.4-5.0); ANION GAP 11 (8-16); BLOOD UREA NITROGEN 15 mg/dL (7-18); CHLORIDE 102 mmol/L (98-107); CO2 26 mmol/L (21-32); CREATININE 1.1 mg/dL (0.7-1.3); GLUCOSE,RANDOM 92 mg/dL (74-106); SGOT/AST 29 U/L (15-37); SGPT/ALT 49 U/L (12-78); SODIUM 139 mmol/L (136-145)
[2017-09-26 11:57] LABS: ALK PHOS 61 U/L (45-117); BILIRUBIN,TOTAL 0.7 mg/dL (0.2-1.0); TOT PROT 7.9 g/dl (6.4-8.2)
[2017-09-26] MEDS ORDERED: ACETAMINOPHEN 1000 MG/100 ML VIAL (NON FORMULARY) IVPB ONE (14:17)
[2017-09-26 14:20] LABS: LDH 218 U/L (87-241)
[2017-09-26] MEDS ORDERED: ACETAMINOPHEN INJECTION 100 ML IVPB ONE (14:38)
[2017-09-26 16:07] VITALS: BP 130/75; PULSE 78; TEMP 98.4
== END 2017-09-26 16:07 | disposition home or self-care (01) ==
LOC: JER 10:33
PROC: 3E033NZ Introduction of Analgesics, Hypnotics, Sedatives into Peripheral Vein, Percutaneous Approach (ICD-10-PCS; principal; 2017-09-26)
PROC: 3E0333Z Introduction of Anti-inflammatory into Peripheral Vein, Percutaneous Approach (ICD-10-PCS; 2017-09-26)
PROC: 3E0337Z Introduction of Electrolytic and Water Balance Substance into Peripheral Vein, Percutaneous Approach (ICD-10-PCS; 2017-09-26)
DX: M79.1 Myalgia (principal); K21.9 Gastro-esophageal reflux disease without esophagitis; E78.00 Pure hypercholesterolemia, unspecified
CPT/HCPCS: 36415; 74176; 76870-TC; 80053; 81003; 83615; 85025; 87086; 99284-25; J0131; J7030

== ENCOUNTER 2019-08-13 10:58 | Inpatient (IN) | payer OTHER ==
[2019-08-13 12:35] LABS: BASO % 0.5 % (0-2.0); EOS % 0.3 % (0-4.5); HEMATOCRIT 43.5 % (35.4-49); HEMOGLOBIN 14.6 GM/dL (11.7-16.9); LYMPH % 29.5 % (8-40); MCH 28.8 pg (25.7-33.7); MCHC 33.5 g/dl (32.0-35.9); MEAN PLT VOLUME 7.8 fl (7.5-11.1); MONO % 5.6 % (3.8-10.2); NEUT % 64.1 % (42.8-82.8); PLATELET COUNT 337 K/MM3 (134-434); RBC 5.06 M/mm3 (4.00-5.60); RDW 13.9 % (11.9-15.9)
[2019-08-13 12:57] VITALS: BMI 38.0
[2019-08-13 13:01] LABS: INR 1.04 (0.83-1.09); PROTHROMBIN TIME (PATIENT) 12.3 SEC (9.7-13.0)
[2019-08-13 13:10] LABS: ALBUMIN 3.4 g/dl (3.4-5.0); BILIRUBIN,TOTAL 0.2 mg/dL (0.2-1); BLOOD UREA NITROGEN 14.3 mg/dL (7-18); CALCIUM 8.8 mg/dL (8.5-10.1); POTASSIUM 4.4 mmol/L (3.5-5.1); TOT PROT 7.7 g/dl (6.4-8.2)
--- NOTE | 2019-08-13 13:59 | HP ---
Admitting History and Physical - Smoking History Smoking history: Never smoked Have you smoked in the past 12 months: No Aproximately how many cigarettes per day: 0 - Alcohol/Substance Use Hx Alcohol Use: Yes (social 1 x month) Home Medications - Allergies Allergies/Adverse Reactions: Allergies Allergy/AdvReac Type Severity Reaction Status Date / Time No Known Allergies Allergy Verified 09/26/17 10:43 - Home Medications Home Medications: Ambulatory Orders Lidocaine 5% Patch [Lidoderm Patch -] 1 patch TP DAILY PRN #30 patch 09/26/17 Methocarbamol [Robaxin -] 500 mg PO TID PRN #30 tablet 09/26/17 Naproxen [Naprosyn] 500 mg PO BID PRN #20 tablet 09/26/17 traMADol HCL [Ultram] 50 mg PO BID #15 tablet MDD 2 09/26/17 Physical Examination Vital Signs: Vital Signs Temperature 98.6 F 08/13/19 11:03 Pulse Rate 80 08/13/19 11:03 Respiratory Rate 18 08/13/19 11:03 Blood Pressure 147/84 08/13/19 11:03 O2 Sat by Pulse Oximetry (%) 98 08/13/19 11:15 Labs: CBC, BMP 08/13/19 11:10 08/13/19 11:10
[2019-08-13] MEDS ORDERED: oxyCODONE HCL 5 MG TABLET PO PRN (15:19)
[2019-08-13 15:25] LABS: ERYTHROCYTE SEDIMENTATION RATE 48 mm/hr (0-10)
--- NOTE | 2019-08-13 16:19 | PDOC ---
Documentation entered by Tabitha Rasmussen SCRIBE, acting as scribe for Carlos Berger MD. Carlos Berger MD: This documentation has been prepared by the Valery hutchins Adrianna, SCRIBE, under my direction and personally reviewed by me in its entirety. I confirm that the documentation accurately reflects all work, treatment, procedures, and medical decision making performed by me. History of Present Illness - General Stated Complaint: RT SIDE PAIN Time Seen by Provider: 08/13/19 11:11 - History of Present Illness Initial Comments: The patient is a 38 year old male, with no significant PMH, who presents to the ED for evaluation RUE and RLE pain. Patient notes he developed sudden onset right bicep pain last night, which has progressively traveled throughout the right shoulder and into the right elbow. He endorses numbness, tingling, and weakness of the RUE. This morning, he developed sudden onset pain of sole of the right foot, which radiates into the ankle and up the posterior aspect of the leg to the thigh. He endorses numbness and tingling of the right foot, most prominent at the lateral aspect, and weakness of the RLE. Patient notes his pain progressively worsened throughout the morning, and now he can no longer bear weight secondary to his pain.He denies any recent strenuous activity, MVA, or trauma. Denies any history of similar symptoms. Patient notes he tested positive for the flu 1 week ago. Denies fever, chills, chest pain, SOB, diarrhea, constipation, dysuria, hematuria, headache, blurred vision, or changes in vision. Allergies: NKA, NKDA Surgical History: None reported Social History: Marijuaa use. Denies EtOH, tobacco, or illicit drug use Family History: Diabetes PCP: Dr. Schuler Past History - Past Medical History Allergies/Adverse Reactions: Allergies Allergy/AdvReac Type Severity Reaction Status Date / Time No Known Allergies Allergy Verified 09/26/17 10:43 Home Medications: Ambulatory Orders Lidocaine 5% Patch [Lidoderm Patch -] 1 patch TP DAILY PRN #30 patch 09/26/17 Methocarbamol [Robaxin -] 500 mg PO TID PRN #30 tablet 09/26/17 Naproxen [Naprosyn] 500 mg PO BID PRN #20 tablet 03/14/18 traMADol HCL [Ultram] 50 mg PO BID #15 tablet MDD 2 09/26/17 Anemia: No Asthma: No Cancer: No Cardiac Disorders: No CVA: No COPD: No CHF: No Dementia: No Diabetes: No GI Disorders: Yes (REFLUX) Disorders: No HTN: No Hypercholesterolemia: Yes Liver Disease: No Seizures: No Thyroid Disease: Yes (UNSURE) - Surgical History Abdominal Surgery: No Appendectomy: No Cardiac Surgery: No Cholecystectomy: No Lung Surgery: No Neurologic Surgery: No Orthopedic Surgery: No - Immunization History Immunization Up to Date: Yes - Psycho Social/Smoking Cessation Hx Smoking Status: No Smoking History: Never smoked Have you smoked in the past 12 months: No Number of Cigarettes Smoked Daily: 0 Hx Alcohol Use: No Drug/Substance Use Hx: No Substance Use Type: None Hx Substance Use Treatment: No Review of Systems - Review of Systems Comments:: CONSTITUTIONAL: No fever, no chills, no fatigue EYES: No visual changes ENT: No ear pain, no sore throat CARDIOVASCULAR: No chest pain, no palpitations RESPIRATORY: No cough, no SOB GI: No abdominal pain, no nausea, no vomiting, no constipation, no diarrhea GENITOURINARY: No dysuria, no frequency, no hematuria MUSKULOSKELETAL: +RUE pain and weakness. +RLE pain and weakness. No back pain. SKIN: No rash NEURO: +Numbness and tingling of the RUE. +Numbness and tingling of the RLE. No headache *Physical Exam - Vital Signs Last Vital Signs Temp Pulse Resp BP Pulse Ox 98.6 F 80 18 147/84 98 08/13/19 11:03 08/13/19 11:03 08/13/19 11:03 08/13/19 11:03 08/13/19 11:03 - Physical Exam 08/13/19 16:02 EXAMINATION CONSTITUTIONAL: awake, alert, morbidly obese, in mild distress HEAD: Normocephalic; atraumatic EYES: PERRL; EOM intact ENMT: External appears normal; normal oropharynx NECK: Supple; non-tender; no cervical lymphadenopathy; no c-spine deform; no midline ttp; CARD: Normal S1, S2; no murmurs, rubs, or gallops RESP: Normal chest excursion with respiration; breath sounds clear and equal bilaterally; no wheezes, rhonchi, or rales ABD: Soft, non-distended; non-tender; no palpable organomegaly, no palpable hernias BACK: no deform, no midline or paraspinal ttp EXT: RUE: no obvious deform; + pain on abduction/flexion at shoulder joint; nv intact distally. RLE: + weakness at hip flexion/ext, knee flex/ext; unable to move foot at ankle joint; unable to move toes; no sensaton at l4-s1 on the right. unable to obtain dtrs at knee/ankle on the right. SKIN: Warm, dry, no rash NEURO: No focal neurological deficiencies. ED Treatment Course - LABORATORY CBC & Chemistry Diagram: 08/13/19 11:10 08/13/19 11:10 - ADDITIONAL ORDERS Additional order review: Laboratory Results 08/13/19 08/13/19 11:10 11:10 PT with INR 12.30 INR 1.04 Sodium 139 Potassium 4.4 Chloride 108 H Carbon Dioxide 25 Anion Gap 5 L BUN 14.3 Creatinine 1.0 Est GFR (CKD-EPI)AfAm 110.17 Est GFR (CKD-EPI)NonAf 95.05 Random Glucose 104 Calcium 8.8 Total Bilirubin 0.2 AST 17 ALT 38 Alkaline Phosphatase 58 C-Reactive Protein 1.4 H Total Protein 7.7 Albumin 3.4 08/13/19 11:10 RBC 5.06 MCV 86.0 MCHC 33.5 RDW 13.9 MPV 7.8 Neutrophils % 64.1 Lymphocytes % 29.5 Monocytes % 5.6 Eosinophils % 0.3 Basophils % 0.5 - RADIOLOGY Radiology Studies Ordered: Category Date Time Status LUMBAR SPINE CT W/O CONTRAST [CT] Stat CT Scan 08/13/19 15:04 Taken LUMBAR SPINE MRI W/O CONTRAST [MRI] Stat MRI 08/13/19 12:57 Ordered HUMERUS-RIGHT [RAD] Stat Radiology 08/13/19 11:38 Completed SHOULDER-RIGHT [RAD] Stat Radiology 08/13/19 11:38 Completed - Medications Given in the ED: ED Medications Discontinued Medications Generic Name Dose Route Start Last Admin Trade Name Freq PRN Reason Stop Dose Admin Oxycodone/Acetaminophen 1 combo 08/13/19 11:39 08/13/19 11:53 Percocet 5/325 - PO 08/13/19 11:40 1 combo ONCE ONE Administration Medical Decision Making - Medical Decision Making 08/13/19 Patient is a 38-year-old male history of morbid obesity who presents with atraumatic right upper extremity and right lower extremity pain and weakness 1 week after being diagnosed with influenza. Physical evaluation reveals intact motor and sensation to the right upper extremity with pain on abduction and flexion which is improved after administration of pain medication. There is also decreased sensation and substantial weakness to the right lower extremity most pronounced at the foot and toes. I suspect Gullain case discussed with neurology who agreed with the plan of MRI followed by an LP. Patient was unable to fit into the MRI machine and Guerra or an associated demyelinating neuropathy. Noncontrast CT of LS spine was obtained. Will obtain LP to evaluate for increased protein level. Likely admission. 08/13/19 17:50 LP completed.. pts arm pain has resolved. pt able to move r. toe. other sxs remained unchanged. DR. Camejo requested call back at [phone] Discharge - Discharge Information Problems reviewed: Yes Clinical Impression/Diagnosis: Right leg weakness Condition: Fair - Admission Yes - Follow up/Referral Referrals: Dorina Schuler MD [Primary Care Provider] - - Patient Discharge Instructions - Post Discharge Activity
[2019-08-13] MEDS ORDERED: LIDOCAINE 1%/EPI 1:100000 (20 ML MULTI DOSE VIAL) ONE (17:17)
[2019-08-13 18:54] LABS: BF GLUCOSE (CSF ONLY) 55 mg/dL (40-70)
[2019-08-13 18:55] LABS: CSF APPEARANCE CLEAR; CSF COLOR COLORLESS
[2019-08-13 18:56] LABS: CSF WBC 3
[2019-08-13] MEDS ORDERED: DEXAMETHASONE SOD PHOSPHATE 10 MG/1 ML VIAL IVPUSH ONE (19:07)
[2019-08-13] MEDS ORDERED: DEXAMETHASONE SOD PHOSPHATE 10 MG/1 ML VIAL ONE (20:34)
[2019-08-13] MEDS ORDERED: ACETAMINOPHEN 1000 MG/100 ML VIAL (NON FORMULARY) IVPB ONE (20:35)
[2019-08-13] MEDS ORDERED: SODIUM CHLORIDE 0.9% 1000 ML INFUS.BAG IV ONE (20:35)
[2019-08-13] MEDS ORDERED: METOCLOPRAMIDE HCL INJECTION 10 MG/2 ML VIAL IVPUSH ONE (20:35)
[2019-08-13] MEDS ORDERED: ACETAMINOPHEN INJECTION 100 ML IVPB ONE (21:08)
[2019-08-13] MEDS ORDERED: METOCLOPRAMIDE HCL INJECTION 10 MG/2 ML VIAL ONE (21:08)
[2019-08-13] MEDS ORDERED: GABAPENTIN 100 MG CAPSULE ONE (21:08)
[2019-08-13] MEDS: GABAPENTIN 300 MG CAPSULE PO SCH (21:20)
--- NOTE | 2019-08-13 23:25 | CON.NEURO ---
Consult Consult Specialty:: NEUROLOGY-REID OLMEDO - History of Present Illness History of Present Illness: The patient is a 38 year old male, with no significant PMH, who presents to the ED for evaluation RUE and RLE pain. Patient notes he developed sudden onset right bicep pain last night, which has progressively traveled throughout the right shoulder and into the right elbow. He endorses numbness, tingling, and weakness of the RUE. This morning, he developed sudden onset pain of sole of the right foot, which radiates into the ankle and up the posterior aspect of the leg to the thigh. He endorses numbness and tingling of the right foot, most prominent at the lateral aspect, and weakness of the RLE. Patient notes his pain progressively worsened throughout the morning, and now he can no longer bear weight secondary to his pain.He denies any recent strenuous activity, MVA, or trauma. Denies any history of similar symptoms. Patient notes he tested positive for the flu 1 week ago. Tonight reports he feels better, since receiving Decadron has no weakness in right foot, he denies all symptoms on left side, denies bladder/bowel disturbance, able to ambulate tonight to toilet.Reports mild right dorsum foot pain only. CSF- Prot-25, Gluc-55, RBC-1, WBC-3 - Alcohol/Substance Use Hx Alcohol Use: No - Smoking History Smoking history: Never smoked Have you smoked in the past 12 months: No Aproximately how many cigarettes per day: 0 Home Medications - Allergies Allergies/Adverse Reactions: Allergies Allergy/AdvReac Type Severity Reaction Status Date / Time No Known Allergies Allergy Verified 09/26/17 10:43 - Home Medications Home Medications: Ambulatory Orders Lidocaine 5% Patch [Lidoderm Patch -] 1 patch TP DAILY PRN #30 patch 09/26/17 Methocarbamol [Robaxin -] 500 mg PO TID PRN #30 tablet 09/26/17 Naproxen [Naprosyn] 500 mg PO BID PRN #20 tablet 09/26/17 traMADol HCL [Ultram] 50 mg PO BID #15 tablet MDD 2 09/26/17 Physical Exam-Neuro Vital Signs: Vital Signs Temperature 98.6 F 08/13/19 11:03 Pulse Rate 78 08/13/19 19:50 Respiratory Rate 18 08/13/19 19:50 Blood Pressure 131/90 08/13/19 19:50 O2 Sat by Pulse Oximetry (%) 96 08/13/19 19:50 Labs: CBC, BMP 08/13/19 11:10 08/13/19 11:10 INR, PTT INR 1.04 (0.83-1.09) 08/13/19 11:10 - Neuro Exam DTR's: 1+ Right Achilles (bilat knees- 2+), 2+ Left Bicep, 2+ Right Bicep, 2+ Left Tricep, 2+ Right Tricep, 2+ Left Brachioradialis, 2+ Right Brachioradialis , 2+ Left Achilles Response to light touch: Abnormal (+ significant dysesthesias to touch right [id number]/dorsal aspect of foot) Motor Strength: 5/5: Left Arm, Right Arm, Left Leg, Right Leg Gait: Other (slightly antalgic) Imaging - Results Cat Scan: Report Reviewed (Left L4/5 paracentral disc herniation.) Assessment/Plan pt. with sudden onset transient right arm pain and more persistent right leg/ foot radicular distribution pain, now markedly improved with resolved weakness after decadron. His exam reveals dysesthesias in right foot and diminished right ankle jerk. DDX includes right peroneal nerve compression palsy, right l5/ S1 radicular pain, very less likely demyelinating dz in cervical spine region. Suggest: for now would place on NSAID- naproxyn 500mg bid with food. EMGs as outpt.after a week, my office staff will call patient tomorrow to set up appt. I may obtain MRI cervical spine as outpt. Thank you, Naeem Camejo MD
[2019-08-14] MEDS ORDERED: NAPROXEN 500 MG TABLET PO SCH (10:00)
[2019-08-14 10:39] VITALS: BP 123/77; PULSE 65; TEMP 98.3
[2019-08-14] MEDS: GABAPENTIN 300 MG CAPSULE PO SCH (10:41)
--- NOTE | 2019-08-14 10:46 | DS ---
Physical Examination Vital Signs: Vital Signs Temperature 98.3 F 08/14/19 09:00 Pulse Rate 65 08/14/19 09:00 Respiratory Rate 18 08/14/19 09:00 Blood Pressure 123/77 08/14/19 09:00 O2 Sat by Pulse Oximetry (%) 96 08/13/19 19:50 Labs: CBC, BMP 08/13/19 11:10 08/13/19 11:10 Discharge Summary Problems reviewed: Yes Reason For Visit: WEAKNESS OF RIGHT LOWER EXTREMITY Current Active Problems Right leg weakness (Acute) Condition: Fair - Instructions Diet, Activity, Other Instructions: Pt was admit in [facility] on 08/13/19- Pt may return to work Aug with no restrictions. Referrals: Dorina Schuler MD [Primary Care Provider] - - Home Medications Comprehensive Discharge Medication List: Ambulatory Orders Lidocaine 5% Patch [Lidoderm -] 1 patch TP DAILY PRN #30 patch 09/26/17 Naproxen [Naprosyn] 500 mg PO BID PRN #20 tablet 09/26/17 Gabapentin [Neurontin -] 300 mg PO BID #20 capsule 08/14/19 Naproxen [Naprosyn -] 500 mg PO BID #60 tablet 08/14/19
== END 2019-08-14 11:13 | disposition home or self-care (01) | DRG 74 ==
LOC: JER 10:58 → JERBED 17:49
PROVIDERS: ADMIT Internal Medicine; ATTEND Internal Medicine
DX: G57.31 Lesion of lateral popliteal nerve, right lower limb (principal); R53.1 Weakness; E66.01 Morbid (severe) obesity due to excess calories; Z68.38 Body mass index [BMI] 38.0-38.9, adult; R20.8 Other disturbances of skin sensation; G31.89 Other specified degenerative diseases of nervous system
CPT/HCPCS: 36415; 72131-TC; 73030-TC-RT-FY; 73060-TC-RT-FY; 73610-TC-RT-FY; 73630-TC-RT-FY; 80053; 82945; 84157; 85025; 85610; 85651; 86140; 99283-25; J0131; J1100; J7030

== ENCOUNTER 2020-06-02 15:17 | Emergency (ER) | payer OTHER ==
[2020-06-02 15:40] VITALS: BP 132/90; PULSE 78; TEMP 100.3; BMI 40.6
[2020-06-02] MEDS ORDERED: ACETAMINOPHEN 500 MG TABLET (FP) PO ONE (15:49)
[2020-06-02] MEDS ORDERED: ACETAMINOPHEN 500 MG TABLET (FP) ONE (16:22)
[2020-06-02] MEDS ORDERED: KETOROLAC TROMETHAMINE 60 MG/2 ML VIAL IM ONE (16:29)
[2020-06-02] MEDS ORDERED: DIPHTH,PERTUSS(ACELL),TET 0.5 ML DISP.SYRIN IM ONE ×2 (16:29→16:52)
[2020-06-02] MEDS ORDERED: KETOROLAC TROMETHAMINE 60 MG/2 ML VIAL ONE (16:52)
== END 2020-06-02 17:35 | disposition home or self-care (01) ==
LOC: FER 15:17
PROC: 3E0234Z Introduction of Serum, Toxoid and Vaccine into Muscle, Percutaneous Approach (ICD-10-PCS; principal; 2020-06-02)
PROC: 3E0233Z Introduction of Anti-inflammatory into Muscle, Percutaneous Approach (ICD-10-PCS; 2020-06-02)
DX: S40.022A Contusion of left upper arm, initial encounter (principal); S00.81XA Abrasion of other part of head, initial encounter
CPT/HCPCS: 72050-TC-FY; 73030-TC-LT-FY; 73070-TC-LT-FY; 90715; 99285-25

== ENCOUNTER 2020-08-08 13:28 | Emergency (ER) | payer OTHER ==
[2020-08-08] MEDS ORDERED: LACTATED RINGERS SOLUTION 1000 ML INFUS.BAG IV ONE (13:44)
[2020-08-08] MEDS ORDERED: METOCLOPRAMIDE HCL INJECTION 10 MG/2 ML VIAL IVPUSH ONE (13:44)
[2020-08-08] MEDS ORDERED: ACETAMINOPHEN 1000 MG/100 ML VIAL (NON FORMULARY) IVPB ONE (13:44)
[2020-08-08] MEDS ORDERED: PANTOPRAZOLE SODIUM 40 MG VIAL IVPUSH ONE (13:45)
[2020-08-08 14:38] VITALS: BP 140/80; PULSE 71; TEMP 99.1; BMI 39.3
[2020-08-08] MEDS ORDERED: PANTOPRAZOLE SODIUM 40 MG VIAL ONE (14:43)
[2020-08-08] MEDS ORDERED: ACETAMINOPHEN INJECTION 100 ML IVPB ONE (14:43)
[2020-08-08] MEDS ORDERED: METOCLOPRAMIDE HCL INJECTION 10 MG/2 ML VIAL ONE (14:43)
[2020-08-08 14:44] LABS: RDW 12.8 % (11.9-15.9)
[2020-08-08 14:48] LABS: BASO % 1.9 % (0-2.0); EOS % 0.7 % (0-4.5); HEMATOCRIT 43.2 % (35.4-49); HEMOGLOBIN 14.9 GM/dl (11.7-16.9); LYMPH % 30.2 % (8-40); MCH 29.6 pg (25.7-33.7); MCHC 34.4 g/dl (32.0-35.9); MEAN CELL VOLUME 86.1 fl (80-96); MEAN PLT VOLUME 7.8 fl (7.5-11.1); MONO % 5.2 % (3.8-10.2); PLATELET COUNT 332 K/MM3 (134-434); RBC 5.02 M/mm3 (4.00-5.60)
[2020-08-08 14:52] LABS: INR 1.13 (0.82-1.09); PROTHROMBIN TIME (PATIENT) 12.5 SEC (10.2-13.0)
[2020-08-08 15:31] LABS: POTASSIUM 4.3 mmol/L (3.5-5.1)
[2020-08-08 15:34] LABS: ALBUMIN 3.4 g/dl (3.4-5.0); CALCIUM 9.1 mg/dL (8.5-10.1); MAGNESIUM 2.3 mg/dL (1.8-2.4)
[2020-08-08 15:39] LABS: BILIRUBIN,TOTAL 0.4 mg/dL (0.2-1); TOT PROT 7.6 g/dl (6.4-8.2)
== END 2020-08-08 16:50 | disposition home or self-care (01) ==
LOC: FER 13:28
PROC: 3E033NZ Introduction of Analgesics, Hypnotics, Sedatives into Peripheral Vein, Percutaneous Approach (ICD-10-PCS; principal; 2020-08-08)
PROC: 3E033GC Introduction of Other Therapeutic Substance into Peripheral Vein, Percutaneous Approach (ICD-10-PCS; 2020-08-08)
DX: R42 Dizziness and giddiness (principal)
CPT/HCPCS: 36415; 70450-TC; 70480-TC; 71045-TC-FY; 80053; 82550; 82553; 83690; 83735; 84484; 85025; 85610; 85730; 93005; 99285-25; J0131

== ENCOUNTER 2020-11-08 19:10 | Emergency (ER) | payer OTHER ==
[2020-11-08 19:17] VITALS: TEMP 98.1; BMI 43.4
[2020-11-08 22:34] VITALS: BP 130/86; PULSE 86
== END 2020-11-08 22:34 | disposition home or self-care (01) ==
LOC: JER 19:10
DX: M79.662 Pain in left lower leg (principal)
CPT/HCPCS: 93971-TC; 99284-25

== ENCOUNTER 2022-11-17 13:33 | Emergency (ER) | payer OTHER ==
[2022-11-17 13:42] VITALS: BP 148/90; PULSE 88; RESP 18; TEMP 98.4; BMI 47.5
[2022-11-17] MEDS ORDERED: KETOROLAC TROMETHAMINE 30 MG/1 ML VIAL IM ONE (14:23)
[2022-11-17] MEDS ORDERED: DEXAMETHASONE LIQUID 0.5 MG/5 ML PO ONE (14:23)
[2022-11-17] MEDS ORDERED: DEXAMETHASONE SOD PHOSPHATE 10 MG/1 ML VIAL ONE (14:30)
[2022-11-17] MEDS ORDERED: KETOROLAC TROMETHAMINE 30 MG/1 ML VIAL ONE (14:31)
[2022-11-17 14:55] LABS: BASO % 0.8 % (0-2.0); EOS % 0.6 % (0-4.5); LYMPH % 32.9 % (8-40); MCH 30.1 pg (25.7-33.7); MCHC 35.6 g/dl (32.0-35.9); MEAN CELL VOLUME 84.4 fl (80-96); MEAN PLT VOLUME 7.5 fl (7.5-11.1); MONO % 6.9 % (3.8-10.2); NEUT % 58.8 % (42.8-82.8); PLATELET COUNT 320 10^3/uL (134-434); RBC 4.98 M/mm3 (4.00-5.60); RDW 13.6 % (11.9-15.9); WHITE BLOOD COUNT 6.9 K/mm3 (4.0-10.0)
[2022-11-17 15:02] LABS: INR 1.2 (0.83-1.09); PROTHROMBIN TIME (PATIENT) 13.9 SEC (9.7-13.0)
[2022-11-17 15:05] LABS: ACTIVATED PTT 32.6 SECONDS (25.2-36.5)
[2022-11-17 15:15] LABS: POTASSIUM 4.2 mmol/L (3.5-5.1)
[2022-11-17 15:17] LABS: CALCIUM 9.1 mg/dL (8.5-10.1)
[2022-11-17 15:18] LABS: ALBUMIN 3.6 g/dl (3.4-5.0); BLOOD UREA NITROGEN 11.8 mg/dL (7-18)
[2022-11-17 15:21] LABS: CREATININE 0.9 mg/dL (0.55-1.3)
[2022-11-17 15:22] LABS: BILIRUBIN,TOTAL 0.6 mg/dL (0.2-1); TOT PROT 8.2 g/dl (6.4-8.2)
[2022-11-17] MEDS ORDERED: AZITHROMYCIN 500 MG TABLET PO ONE (15:54)
[2022-11-17] MEDS ORDERED: AZITHROMYCIN 500 MG TABLET ONE (16:03)
== END 2022-11-17 16:13 | disposition home or self-care (01) ==
LOC: JER 13:33
PROC: 3E0233Z Introduction of Anti-inflammatory into Muscle, Percutaneous Approach (ICD-10-PCS; principal; 2022-11-17)
DX: R06.02 Shortness of breath (principal); R07.89 Other chest pain; R09.81 Nasal congestion; R05.9 Cough, unspecified; R07.0 Pain in throat; H92.03 Otalgia, bilateral; R50.9 Fever, unspecified; B34.9 Viral infection, unspecified; Z20.822 Contact with and (suspected) exposure to COVID-19
CPT/HCPCS: 0241U-QW; 36415; 71045-TC-FY; 80053; 84484; 85025; 85610; 85730; 87070; 87651; 93005; 93010; 99285-25

== ENCOUNTER 2023-07-20 13:47 | Emergency (ER) | payer OTHER ==
[2023-07-20 14:11] VITALS: BP 157/86; PULSE 85; RESP 18; TEMP 99.5; BMI 50.2
== END 2023-07-20 16:00 | disposition home or self-care (01) ==
LOC: JERFT 13:47 → JER 13:47 → JERFT 16:00
DX: S50.02XA Contusion of left elbow, initial encounter (principal); S00.83XA Contusion of other part of head, initial encounter; W19.XXXA Unspecified fall, initial encounter
CPT/HCPCS: 73070-TC-LT-FY; 99283-25

== ENCOUNTER 2023-08-13 15:28 | Emergency (ER) | payer OTHER ==
[2023-08-13 15:39] VITALS: BP 141/91; PULSE 90; RESP 20; TEMP 98; BMI 40.6
[2023-08-13 17:46] LABS: BASO % 1.3 % (0-2.0); EOS % 0.3 % (0-4.5); HEMOGLOBIN 15.1 GM/dL (11.7-16.9); MCH 29.8 pg (25.7-33.7); MCHC 34.4 g/dl (32.0-35.9); MEAN CELL VOLUME 86.7 fl (80-96); MEAN PLT VOLUME 8.2 fl (7.5-11.1); MONO % 8.3 % (3.8-10.2); NEUT % 60.1 % (42.8-82.8); PLATELET COUNT 337 10^3/uL (134-434); RBC 5.08 M/mm3 (4.00-5.60); RDW 13.7 % (11.9-15.9); WHITE BLOOD COUNT 8.4 K/mm3 (4.0-10.0)
[2023-08-13 17:54] LABS: INR 1.34 (0.83-1.09); PROTHROMBIN TIME (PATIENT) 15.5 SEC (9.7-13.0)
[2023-08-13 18:03] LABS: POTASSIUM 4.6 mmol/L (3.5-5.1)
[2023-08-13 18:05] LABS: CALCIUM 9.7 mg/dL (8.5-10.1)
[2023-08-13 18:06] LABS: ALBUMIN 4.2 g/dl (3.4-5.0); BLOOD UREA NITROGEN 19.8 mg/dL (7-18)
[2023-08-13 18:09] LABS: CREATININE 1.2 mg/dL (0.55-1.3)
[2023-08-13 18:10] LABS: TOT PROT 8.6 g/dl (6.4-8.2)
[2023-08-13] MEDS ORDERED: ACETAMINOPHEN 1000 MG/100 ML BAG IVPB ONE (18:20)
[2023-08-13] MEDS ORDERED: ACETAMINOPHEN INJECTION 100 ML IVPB ONE (18:23)
== END 2023-08-13 22:56 | disposition home or self-care (01) ==
LOC: JER 15:28
PROC: 3E033NZ Introduction of Analgesics, Hypnotics, Sedatives into Peripheral Vein, Percutaneous Approach (ICD-10-PCS; principal; 2023-08-13)
DX: M79.604 Pain in right leg (principal); M79.605 Pain in left leg; R51.9 Headache, unspecified; R07.89 Other chest pain; M54.2 Cervicalgia; R11.0 Nausea; R06.02 Shortness of breath; R10.12 Left upper quadrant pain; Z20.822 Contact with and (suspected) exposure to COVID-19
CPT/HCPCS: 0241U-QW; 36415; 71275-TC; 80053; 84484; 85025; 85610; 85730; 93005; 93010; 99285-25; J0131; Q9967

== ENCOUNTER 2023-11-30 13:08 | Emergency (ER) | payer OTHER ==
[2023-11-30 13:42] VITALS: TEMP 98.3; BMI 33.2
[2023-11-30] MEDS ORDERED: MECLIZINE HCL 25 MG TABLET (FP) ONE (14:09)
[2023-11-30] MEDS ORDERED: ONDANSETRON 4 MG/2 ML VIAL ONE (14:09)
[2023-11-30] MEDS: MECLIZINE HCL 25 MG TABLET (FP) PO ONE (14:18)
[2023-11-30] MEDS: ONDANSETRON 4 MG/2 ML VIAL IVPUSH ONE (15:00)
[2023-11-30] MEDS: SODIUM CHLORIDE 0.9% 500 ML INFUS.BAG IV ONE (15:00)
[2023-11-30 15:07] LABS: BASO % 0.9 % (0-2.0); EOS % 0.3 % (0-4.5); HEMATOCRIT 39.4 % (35.4-49); HEMOGLOBIN 13.5 GM/dL (11.7-16.9); LYMPH % 28.9 % (8-40); MCH 30.2 pg (25.7-33.7); MCHC 34.4 g/dl (32.0-35.9); MEAN CELL VOLUME 87.7 fl (80-96); MEAN PLT VOLUME 7.4 fl (7.5-11.1); MONO % 6.1 % (3.8-10.2); NEUT % 63.8 % (42.8-82.8); PLATELET COUNT 296 10^3/uL (134-434); RBC 4.49 M/mm3 (4.00-5.60); RDW 14.5 % (11.9-15.9); WHITE BLOOD COUNT 5.9 K/mm3 (4.0-10.0)
[2023-11-30 15:14] LABS: INR 1.14 (0.83-1.09); PROTHROMBIN TIME (PATIENT) 12.8 SEC (9.7-13.0)
[2023-11-30 15:19] LABS: POTASSIUM 3.2 mmol/L (3.5-5.1)
[2023-11-30 15:26] LABS: BLOOD UREA NITROGEN 8.6 mg/dL (7-18); CALCIUM 9.1 mg/dL (8.5-10.1)
[2023-11-30 15:27] LABS: ALBUMIN 3.5 g/dl (3.4-5.0)
[2023-11-30 15:29] LABS: BILIRUBIN,TOTAL 0.9 mg/dL (0.2-1); CREATININE 0.8 mg/dL (0.55-1.3)
[2023-11-30 16:06] VITALS: BP 158/83; PULSE 72; RESP 19
== END 2023-11-30 18:15 | disposition home or self-care (01) ==
LOC: JER 13:08
PROC: 3E033GC Introduction of Other Therapeutic Substance into Peripheral Vein, Percutaneous Approach (ICD-10-PCS; principal; 2023-11-30)
DX: H81.10 Benign paroxysmal vertigo, unspecified ear (principal); R07.9 Chest pain, unspecified; R51.9 Headache, unspecified; H57.12 Ocular pain, left eye
CPT/HCPCS: 36415; 70450-TC; 71045-TC-FY; 80053; 83735; 84484; 85025; 85610; 85730; 93005; 93010; 99285-25

== ENCOUNTER 2024-04-09 14:21 | Emergency (ER) | payer OTHER ==
[2024-04-09 14:46] VITALS: BP 138/88; PULSE 69; RESP 20; TEMP 99.1; BMI 27.1
[2024-04-09] MEDS ORDERED: MECLIZINE HCL 25 MG TABLET (FP) ONE (16:11)
[2024-04-09] MEDS ORDERED: METOCLOPRAMIDE HCL INJECTION 10 MG/2 ML VIAL ONE (16:11)
[2024-04-09] MEDS ORDERED: ACETAMINOPHEN INJECTION 100 ML ONE (16:11)
[2024-04-09] MEDS: SODIUM CHLORIDE 0.9% 1000 ML INFUS.BAG IV ONE (16:19)
[2024-04-09] MEDS: ACETAMINOPHEN 1000 MG/100 ML BAG IVPB ONE (16:20)
[2024-04-09] MEDS: MECLIZINE HCL 25 MG TABLET (FP) PO ONE (16:20)
[2024-04-09] MEDS: METOCLOPRAMIDE HCL INJECTION 10 MG/2 ML VIAL IVPUSH ONE (16:20)
[2024-04-09 16:28] LABS: HEMATOCRIT 43.5 % (35.4-49); HEMOGLOBIN 14.1 G/dL (11.7-16.9); INR 1.16 (0.83-1.09); MCH 29.6 pg (25.7-33.7); MCHC 32.4 g/dl (32.0-35.9); MEAN CELL VOLUME 91.6 fl (80-96); MEAN PLT VOLUME 7.6 fl (7.5-11.1); PLATELET COUNT 232.4 10^3/uL (134-434); PROTHROMBIN TIME (PATIENT) 13.2 SEC (9.7-13.0); RBC 4.75 10^6/uL (4.00-5.60); RDW 14.9 % (11.9-15.9); WHITE BLOOD COUNT 5.7 10^3/uL (4.0-10.8)
[2024-04-09 16:30] LABS: ACTIVATED PTT 33.6 SECONDS (25.2-36.5)
[2024-04-09 16:37] LABS: ALBUMIN 4.2 g/dl (3.4-5.0); BILIRUBIN,TOTAL 0.9 mg/dl (0.2-1); CALCIUM 9.5 mg/dl (8.5-10.1); CREATININE 0.8 mg/dl (0.6-1.3); POTASSIUM 3.8 mmol/L (3.5-5.1); TOT PROT 7.2 g/dl (6.4-8.2)
[2024-04-09 16:58] LABS: PLATELET ESTIMATE ADEQUATE
== END 2024-04-09 17:45 | disposition home or self-care (01) ==
LOC: FER 14:21
PROC: 3E033NZ Introduction of Analgesics, Hypnotics, Sedatives into Peripheral Vein, Percutaneous Approach (ICD-10-PCS; principal; 2024-04-09)
PROC: 3E033GC Introduction of Other Therapeutic Substance into Peripheral Vein, Percutaneous Approach (ICD-10-PCS; 2024-04-09)
DX: S09.90XA Unspecified injury of head, initial encounter (principal); R42 Dizziness and giddiness; R11.0 Nausea; R07.9 Chest pain, unspecified; W18.30XA Fall on same level, unspecified, initial encounter
CPT/HCPCS: 36415; 70450-TC; 71045-TC-FY; 72125-TC; 80053; 83735; 84484; 85027; 85610; 85730; 93005; 99285-25; J0131

== ENCOUNTER 2024-06-09 13:56 | Observation (INO) | payer OTHER ==
[2024-06-09] MEDS ORDERED: ACETAMINOPHEN INJECTION 100 ML ONE (15:06)
[2024-06-09 15:08] LABS: VENOUS BASE EXCESS 5.4 mmol/L (-2-2); VENOUS O2 SATURATION 42.1 % (70-80); VENOUS PCO2 53.4 mmHg (38-52); VENOUS PH 7.391 (7.310-7.410)
[2024-06-09 15:10] LABS: BASO % 0.8 % (0-2.0); EOS % 0.2 % (0-4.5); HEMATOCRIT 36.1 % (35.4-49); HEMOGLOBIN 12.2 GM/dL (11.7-16.9); LYMPH % 31.1 % (8-40); MCH 29.8 pg (25.7-33.7); MCHC 33.9 g/dl (32.0-35.9); MEAN CELL VOLUME 88.2 fl (80-96); MEAN PLT VOLUME 7.4 fl (7.5-11.1); MONO % 6.6 % (3.8-10.2); NEUT % 61.3 % (42.8-82.8); PLATELET COUNT 209 10^3/uL (134-434); RBC 4.09 M/mm3 (4.00-5.60); RDW 13.1 % (11.9-15.9); WHITE BLOOD COUNT 4.4 K/mm3 (4.0-10.0)
[2024-06-09] MEDS: ACETAMINOPHEN 1000 MG/100 ML BAG IVPB ONE (15:12)
[2024-06-09 15:13] LABS: INR 1.12 (0.83-1.09); PROTHROMBIN TIME (PATIENT) 12.6 SEC (9.7-13.0)
[2024-06-09 15:16] LABS: ACTIVATED PTT 31.7 SECONDS (25.2-36.5)
[2024-06-09 15:25] LABS: POTASSIUM 3.8 mmol/L (3.5-5.1)
[2024-06-09 15:28] LABS: ALBUMIN 3.4 g/dl (3.4-5.0); BLOOD UREA NITROGEN 11.5 mg/dL (7-18); CALCIUM 9.2 mg/dL (8.5-10.1); MAGNESIUM 2.2 mg/dL (1.8-2.4)
[2024-06-09 15:31] LABS: CREATININE 0.8 mg/dL (0.55-1.3)
[2024-06-09 15:32] LABS: PHOSPHOROUS 2.8 mg/dL (2.5-4.9)
[2024-06-09 15:33] LABS: BILIRUBIN,TOTAL 0.6 mg/dL (0.2-1); TOT PROT 6.6 g/dl (6.4-8.2)
[2024-06-09] MEDS ORDERED: DOCUSATE SODIUM 100 MG CAPSULE (FP) PO PRN (21:37)
[2024-06-09] MEDS ORDERED: ACETAMINOPHEN 325 MG TABLET (FP) PO PRN (21:37)
[2024-06-09] MEDS: DEXTROSE 10%-WATER - 1,000 ML IV SCH (22:05)
[2024-06-09 23:42] VITALS: RESP 18
[2024-06-10 07:43] LABS: HEMATOCRIT 34.8 % (35.4-49); HEMOGLOBIN 11.8 GM/dL (11.7-16.9); MCH 29.7 pg (25.7-33.7); MCHC 33.7 g/dl (32.0-35.9); MEAN CELL VOLUME 88.1 fl (80-96); MEAN PLT VOLUME 7.4 fl (7.5-11.1); PLATELET COUNT 199 10^3/uL (134-434); RBC 3.95 M/mm3 (4.00-5.60); WHITE BLOOD COUNT 4.1 K/mm3 (4.0-10.0)
[2024-06-10 07:56] LABS: POTASSIUM 3.6 mmol/L (3.5-5.1)
[2024-06-10 07:59] LABS: BLOOD UREA NITROGEN 9.2 mg/dL (7-18); CALCIUM 8.7 mg/dL (8.5-10.1)
[2024-06-10 08:02] LABS: CREATININE 0.8 mg/dL (0.55-1.3)
[2024-06-10] MEDS ORDERED: DEXTROSE 10%-WATER - 1,000 ML IV SCH (08:45)
[2024-06-10] MEDS: POLYETHYLENE GLYCOL (HEALTHYLAX) 3350 17 GM PACKET PO ONE (09:28)
[2024-06-10 13:46] VITALS: BMI 25.2
[2024-06-10] MEDS: DEXTROSE 5%-NORMAL SALINE 1,000 ML IV SCH (15:07)
[2024-06-10] MEDS: ROSUVASTATIN CA 20 MG TABLET PO SCH (21:27)
[2024-06-10] MEDS ORDERED: ROSUVASTATIN CA 20 MG TABLET PO SCH (22:25)
[2024-06-11 15:04] VITALS: BP 136/80; PULSE 82; TEMP 98.6
== END 2024-06-11 16:01 | disposition home or self-care (01) ==
LOC: JER 13:56 → JERBED 17:50 → J4S 21:37
PROVIDERS: ADMIT Student in an Organized Health Care Education/Training Program; ATTEND Internal Medicine
PROC: 3E033NZ Introduction of Analgesics, Hypnotics, Sedatives into Peripheral Vein, Percutaneous Approach (ICD-10-PCS; principal; 2024-06-09)
PROC: 3E0337Z Introduction of Electrolytic and Water Balance Substance into Peripheral Vein, Percutaneous Approach (ICD-10-PCS; 2024-06-09)
DX: E11.649 Type 2 diabetes mellitus with hypoglycemia without coma (principal); K59.00 Constipation, unspecified; I10 Essential (primary) hypertension; E78.5 Hyperlipidemia, unspecified; Z98.84 Bariatric surgery status; K29.70 Gastritis, unspecified, without bleeding; K44.9 Diaphragmatic hernia without obstruction or gangrene; K21.00 Gastro-esophageal reflux disease with esophagitis, without bleeding; K31.7 Polyp of stomach and duodenum
CPT/HCPCS: 36415; 71046-TC-FY; 74177-TC; 80048; 80053; 82803; 82962; 83735; 84100; 84484; 85025; 85027; 85610; 85730; 93005; 93010; 96361; 96374; 99285-25; G0378; J0131; Q9967